=== PATIENT | male | born 1960 | race Hispanic/Latino ===

== ENCOUNTER → 2017-08-26 | Day surgery (SDC) | payer OTHER ==
[~2017-08-26] VITALS: Ht 170.2 cm; Wt 77.1 kg
[~2017-08-26] MED LIST: ASPIRIN81 M4 PO; BUPROPION XL300 M1 PO; CALTRATE 600 +1 EACH PO; CLOPIDOGREL75 M1 PO; COUMADIN2.5 M1 PO; CRESTOR10 M1 PO; GABAPENTIN300 M2 PO; KLONOPIN0.5 M1 PO; NORVASC2.5 M1 PO; OMEPRAZOLE20 M2 PO; OXYCODONE HCL E40 MG PO; OXYCODONE HCL30 M1 PO; OXYCONTIN30 M1 PO; RANEXA500 M1 PO; TAMSULOSIN HCL0.4 M1 PO; TIZANIDINE HCL2 M1 PO; TOPROL XL50 M1 PO; VITAMIN D250000 UNIT PO
--- NOTE | 2017-08-26 14:29 | Operative Report ---
Operative/Inv Procedure Report Surgery Date: 08/26/17 Name of Procedure: Cataract extraction lens implantation left eye Pre-Operative Diagnosis: Age-related cataract left eye 20/25 vision 20/70 glare vision Post-Operative Diagnosis: Same Estimated Blood Loss: none Surgeon/Pit Worker Power Shovel: David HARDWICK,Dakota Downs Anesthesia: local monitored anesthesi Complications: None Operative/Procedure Note Note: The patient was brought to the operating room standard monitoring equipment was attached the patient was prepped and draped in the usual fashion for intraocular surgery. A lid speculum was placed to retract the lids. The case was begun by making 2 partial-thickness corneal relaxing incisions at 100. A temporal incision with a 2.4 mm keratome. The eye was stabilized with a Gutierrez ring during this incision. 1 mL of non-preserved lidocaine was introduced into the anterior chamber to provide anesthesia. The anterior chamber was then filled and deepened with viscoelastic. A curvilinear capsulorrhexis was achieved using a 30-gauge needle and is a cystotome and capsulorrhexis was finished using a Utrata forceps. A second or paracentesis incision was made temporally with a 1 mm MVR blade. The lens was then hydrodissected with balanced salt solution and found to be rotatable. The lens was emulsified using phacoemulsification and a modified four-quadrant cracking technique. The residual cortical material was removed using automated irrigation and aspiration and as much of the anterior capsular rim was cleaned as well as possible. The posterior capsule was cleaned first with the automated machine on a low setting and then manually with a Carlos Eduardo squeegee. The capsular bag was deepened with viscoelastic. The lens a Akreos AO 60 22.5 Diopter placed into the bag under direct visualization and rotated so that the haptics were at 12 and 6:00. Viscoelastic was then removed from the eye by flushing it out and then by automated irrigation and aspiration. The eye was pressurized to a normal tone. 1/10 of a cc of vancomycin solution was introduced into the anterior chamber to provide antibiotic prophylaxis. The wounds were sealed by hydrating the stroma adjacent to them and the eye was left at a proper tone after the wounds were checked and found not to be leaking. The lid speculum was removed from the orbit. Antibiotic and steroid drops were placed on the eye and then the eye was shielded. Monitoring equipment was removed from the patient and the patient was removed from the operative suite to the holding area. The patient tolerated the procedure well and will be seen in the office tomorrow.
== END ==
LOC: STS 02:02
DX: H25.9 Unspecified age-related cataract (principal); I10 Essential (primary) hypertension; Z86.711 Personal history of pulmonary embolism; Z79.01 Long term (current) use of anticoagulants; K21.9 Gastro-esophageal reflux disease without esophagitis; G47.33 Obstructive sleep apnea (adult) (pediatric); I25.10 Atherosclerotic heart disease of native coronary artery without angina pectoris
CPT/HCPCS: J2250; V2632